=== PATIENT | male | born 1950 | race Caucasian/White ===

== ENCOUNTER 2023-06-03 15:40 | Emergency (ER) | payer OTHER ==
[2023-06-03 16:43] LABS: BASOPHILS % (AUTO) 0.6 %; MEAN CORPUSCULAR VOLUME 83.3 fL (80.0-94.0); MONOCYTES % (AUTO) 6.9 %; RED CELL DISTRIBUTION WIDTH 18.2 % (12.0-15.0)
[2023-06-03 16:45] LABS: EOSINOPHILS % (AUTO) 0.3 %; HCT - HEMATOCRIT 45.3 % (42.0-52.0); HGB - HEMOGLOBIN 14.1 g/dL (14.0-18.0); LYMPHOCYTES % (AUTO) 9.6 %; MEAN CORPUSCULAR HEMOGLOBIN 25.9 pg (27.0-31.0); MEAN CORPUSCULAR HGB CONC 31.1 g/dL (32.0-36.0); NEUTROPHILS % (AUTO) 78.4 %; PLT - PLATELET COUNT 586 10^3/uL (130-450); RED BLOOD COUNT 5.44 10^6/uL (4.70-6.10); WHITE BLOOD COUNT 16.9 x10^3/uL (4.8-10.8)
[2023-06-03 16:46] LABS: ABNORMAL LYMPHS % (MANUAL) 0 %
[2023-06-03 16:56] LABS: ALBUMIN 3.7 g/dL (3.2-5.5)
[2023-06-03 17:02] LABS: ALBUMIN/GLOBULIN RATIO 1.1 (1.0-2.2); BAND NEUTROPHILS % (MANUAL) 2 %; BILIRUBIN,TOTAL 0.7 mg/dL (0.2-1.0); CALCIUM 9.8 mg/dL (8.5-10.3); CREATININE 2.6 mg/dL (0.6-1.3); LYMPHOCYTES # (MANUAL) 1.4 10^3/uL (1.5-3.5); LYMPHOCYTES % (MANUAL) 5 %; METAMYELOCYTES % (MANUAL) 2 %; MONOCYTES # (MANUAL) 1.5 10^3/uL (0.0-1.0); MYELOCYTES % (MANUAL) 1 %; NEUTROPHILS # (MANUAL) 13.5 10^3/uL (1.5-6.6); POTASSIUM 4.7 mmol/L (3.5-4.5); REACTIVE LYMPHS % (MANUAL) 3 %; TOTAL PROTEIN 7.1 g/dL (6.4-8.9)
[2023-06-03 17:03] LABS: DIFFERENTIAL COMMENT MANUAL DIFFERENTIAL; PLATELET ESTIMATE, MANUAL INCREASED (>450,000) (NORMAL); PLATELET MORPHOLOGY 1+ GIANT PLATELETS (NORMAL); RBC MORPHOLOGY (MULTIPLE) 2+ ANISOCYTOSIS (NORMAL)
[2023-06-03] MEDS ORDERED: ONDANSETRON 4 MG/2 ML VIAL IVP STA ×2 (17:32→19:43)
[2023-06-03] MEDS ORDERED: SODIUM CHLORIDE 0.9% 1,000 ML IV STA ×2 (17:32→18:37)
--- NOTE | 2023-06-03 17:33 | ED Physician Documentation ---
PD HPI ABD PAIN - Stated complaint Stated Complaint: NAUSEA/INDIGESTION - Chief complaint Chief Complaint: Abd Pain - History obtained from History obtained from: Patient - Additional information Additional information: 73-year-old gentleman with history of melanoma on his chest around 9 years ago. Starting about 5 weeks ago he was hospitalized at [facility] and found that he had widespread metastases and is planned to start immunotherapy in the next week or so. He presents to the emergency department with about 4 days of nausea, stomach upset without pain, and bloating. He also feels short of breath. He is only current medication is Lovenox for a blood clot. I am unable to ascertain from his history where the blood clot is. PD PAST MEDICAL HISTORY - Past Medical History Past Medical History: Yes Other Past Medical History: melanoma with mets - Past Surgical History Past Surgical History: Yes - Allergies Allergies/Adverse Reactions: Allergies Allergy/AdvReac Type Severity Reaction Status Date / Time No Known Drug Allergies Allergy Verified 06/03/23 16:00 - Social History Does the pt smoke?: No Smoking Status: Never smoker PD ED PE NORMAL - Vitals Vital signs reviewed: Yes - General General: Alert and oriented X 3, Other (He appears ill, he is tachypneic but a good historian.) - HEENT HEENT: PERRL, EOMI - Neck Neck: Supple, no meningeal sign, No bony TTP - Cardiac Cardiac: RRR, No murmur - Respiratory Respiratory: Clear bilaterally, Other (Tachypneic) - Abdomen Abdomen: Other (Mildly distended abdomen but nontender) - Back Back: No CVA TTP - Derm Derm: Normal color, Warm and dry - Extremities Extremities: Other (1+ right and 2+ left pitting pedal edema) - Neuro Neuro: Alert and oriented X 3, Normal speech Results - Vitals Vitals: Vital Signs - 24 hr 06/03/23 06/03/23 06/03/23 15:57 16:00 18:32 Temperature 36.5 C Heart Rate 101 H 111 H 112 H Respiratory 18 25 H 25 H Rate Blood Pressure 149/87 H 154/99 H 136/103 H O2 Saturation 100 96 100 06/03/23 06/03/23 06/03/23 19:00 21:00 22:00 Temperature Heart Rate 136 H 105 H 112 H Respiratory 23 20 24 Rate Blood Pressure 147/95 H 131/91 H 138/90 H O2 Saturation 100 99 99 Oxygen O2 Source Room air - Labs Labs: Laboratory Tests 06/03/23 06/03/23 06/03/23 16:39 16:39 17:13 WBC 16.9 H RBC 5.44 Hgb 14.1 Hct 45.3 MCV 83.3 MCH 25.9 L MCHC 31.1 L RDW 18.2 H Plt Count 586 H MPV 9.0 Neut # (Auto) Not Reportable Lymph # (Auto) Not Reportable [place] # (Auto) Not Reportable Eos # (Auto) Not Reportable Baso # (Auto) Not Reportable Absolute Nucleated RBC Not Reportable Total Counted 100 Band Neuts % (Manual) 2 Reactive Lymphs % (Man) 3 Abnorm Lymph % (Manual) 0 Metamyelocytes % 2 H Myelocytes % 1 H Nucleated RBC % Not Reportable Neutrophils # (Manual) 13.5 H Lymphocytes # (Manual) 1.4 L Monocytes # (Manual) 1.5 H Eosinophils # (Manual) 0.0 Basophils # (Manual) 0.0 Differential Comment MANUAL DIFFERENTIAL Platelet Estimate INCREASED (>450,000) Platelet Morphology 1+ GIANT PLATELETS RBC Morph Micro Appear 2+ ANISOCYTOSIS VBG pH VBG pCO2 VBG pO2 VBG HCO3 VBG Total CO2 VBG O2 Saturation VBG Base Excess Sodium 135 Potassium 4.7 H Chloride 102 Carbon Dioxide 11 L* Anion Gap 22.0 H BUN 54 H Creatinine 2.6 H Estimated GFR (MDRD) 24 L Glucose 72 L POC Whole Bld Glucose Lactic Acid Calcium 9.8 Total Bilirubin 0.7 AST 39 ALT 20 Alkaline Phosphatase 549 H Total Protein 7.1 Albumin 3.7 Globulin 3.4 Albumin/Globulin Ratio 1.1 Lipase 58 SARS-CoV-2 (PCR) NOT DETECTED 06/03/23 06/03/23 06/03/23 17:38 17:38 20:47 WBC RBC Hgb Hct MCV MCH MCHC RDW Plt Count MPV Neut # (Auto) Lymph # (Auto) [place] # (Auto) Eos # (Auto) Baso # (Auto) Absolute Nucleated RBC Total Counted Band Neuts % (Manual) Reactive Lymphs % (Man) Abnorm Lymph % (Manual) Metamyelocytes % Myelocytes % Nucleated RBC % Neutrophils # (Manual) Lymphocytes # (Manual) Monocytes # (Manual) Eosinophils # (Manual) Basophils # (Manual) Differential Comment Platelet Estimate Platelet Morphology RBC Morph Micro Appear VBG pH 7.143 L* VBG pCO2 30.2 L VBG pO2 26.8 VBG HCO3 10.1 L VBG Total CO2 11.0 L VBG O2 Saturation 43.2 L VBG Base Excess -17.5 L Sodium 136 Potassium 4.8 H Chloride 105 Carbon Dioxide 9 L* Anion Gap 22.0 H BUN 54 H Creatinine 2.5 H Estimated GFR (MDRD) 25 L Glucose 60 L* POC Whole Bld Glucose Lactic Acid 3.6 H* Calcium 8.9 Total Bilirubin AST ALT Alkaline Phosphatase Total Protein Albumin Globulin Albumin/Globulin Ratio Lipase SARS-CoV-2 (PCR) 06/03/23 06/03/23 06/03/23 20:47 20:47 22:26 WBC RBC Hgb Hct MCV MCH MCHC RDW Plt Count MPV Neut # (Auto) Lymph # (Auto) [place] # (Auto) Eos # (Auto) Baso # (Auto) Absolute Nucleated RBC Total Counted Band Neuts % (Manual) Reactive Lymphs % (Man) Abnorm Lymph % (Manual) Metamyelocytes % Myelocytes % Nucleated RBC % Neutrophils # (Manual) Lymphocytes # (Manual) Monocytes # (Manual) Eosinophils # (Manual) Basophils # (Manual) Differential Comment Platelet Estimate Platelet Morphology RBC Morph Micro Appear VBG pH 7.133 L* VBG pCO2 26.0 L VBG pO2 35.1 VBG HCO3 8.5 L VBG Total CO2 9.3 L VBG O2 Saturation 59.9 L VBG Base Excess -19.0 L Sodium Potassium Chloride Carbon Dioxide Anion Gap BUN Creatinine Estimated GFR (MDRD) Glucose POC Whole Bld Glucose 70 Lactic Acid 3.1 H* Calcium Total Bilirubin AST ALT Alkaline Phosphatase Total Protein Albumin Globulin Albumin/Globulin Ratio Lipase SARS-CoV-2 (PCR) - Rads (name of study) CT abdomen pelvis with extensive metastatic disease, obstruction of the renal pelvis from 1. Possible ruptured metastatic lesion in the spleen Relevant Findings:: Final report received, EMP independent interpretation of test CT Chest, Relevant Findings:: Final report received (CT chest small right pleural effusion, small pulmonary nodules, axillary adenopathy, possible pathologic rib fracture, L1 compression fracture), EMP independent interpretation of test PD Medical Decision Making - ED course ED course: 73-year-old gentleman with recent diagnosis of widely metastatic melanoma presents with abdominal symptoms but not pain per se. He is ill-appearing, tachycardic and tachypneic. He does not have abdominal tenderness. Initial workup done in triage shows a CBC with a white count of 16 and a left shift. Chemistries are notable for significant acidosis with bicarb of 11, he has prerenal azotemia with a BUN of 54 and a creatinine of 2.6 and alkaline phosphatase of 549. I do not have any prior values to compare these with. Differential diagnosis is broad and he does appear ill, we will culture him up, check lactate and venous gas as well as CT of the chest and abdomen. He will need IV fluids and likely admission. Will start IV abx, not clear if there is infection, but seems tan to "shoot first." CTs will need to be done without contrast given his current renal function. PE is a consideration but he is already on Lovenox. arrived and we discussed the case. There was no mention of renal insufficiency when he was at [facility] so presume this was acute, especially since he is taking Lovenox twice daily and I believe otherwise it would have to be renally dosed. Lactate elevated and venous blood gas showing acidosis with pH of 7.14 and CO2 of 30 so this represents a metabolic acidosis with respiratory compensation. Accepted at [facility] by Dr. Bridget Sanchez at approximately 8 PM and cobras were completed. I believe he is stable for ground transport. Rpt labs showing slightly worsening acidosis and mild hypoglycemia despite lg volume crystalloid and given 1/2 amp D50 and started D5/bicarb gtt. Pt unable to provide UA. - Critical Care Time(min): 45 Time Includes: Direct patient care, Review records, Reassess patient, Document care, Coordinate care, Medical consult, Family consult for tx dec, See progress note Data interpretation: Labs, Pulse ox Procedures included in critical care time: Peripheral IV Departure - Departure Disposition: 02 Transfer Acute Care Hosp Clinical Impression: Hydronephrosis, Metastatic melanoma, Acidemia, Lactic acid acidosis, ARF (acute renal failure), Splenic lesion Condition: Serious Forms: PCP List Discharge Date/Time: 06/03/23 22:50
[2023-06-03 17:49] LABS: VBG BASE EXCESS -17.5 mmol/L (-2 - +2); VBG HCO3 10.1 mmol/L (23-28); VBG PCO2 30.2 mmHg (41-51); VBG PO2 26.8 mmHg (25-47)
[2023-06-03 17:50] LABS: VBG OXYGEN SATURATION 43.2 % (60-80)
[2023-06-03 17:52] LABS: VBG PH 7.143 (7.31-7.41)
[2023-06-03] MEDS ORDERED: PIPERACILLIN/TAZOBACTAM 3.375 GM in SODIUM CHLORIDE 0.9% MINIBAG 100 ML IV STA (18:18)
--- NOTE | 2023-06-03 19:06 | CT Report ---
PROCEDURE: CHEST WO INDICATIONS: Metastatic melanoma, shortness of breath TECHNIQUE: Noncontrast 1mm axial images were acquired from the pulmonary apices to the posterior costophrenic an gles. Axial 5 mm soft tissue kernel reconstructions were performed as well as 8 mm axial MIP and cor onal and sagittal 5 mm reformations. For radiation dose reduction, the following was used: automate d exposure control, adjustment of mA and/or kV according to patient size. COMPARISON: None FINDINGS: Image quality: Excellent. Lungs and pleura: No consolidation. Small right pleural effusion. No pneumothorax. Scattered subcent imeter pulmonary nodules. Mediastinum: Heart size is normal. No pericardial effusion. Mild atherosclerotic vascular calcificati ons of the coronary arteries. No large vessel abnormality. Atherosclerosis. No mediastinal adenopathy by size criteria. Small hiatal hernia. Chest wall and lower neck: Thyroid is unremarkable. Axilla lymphadenopathy, largest on the left measu ring 3.4 cm.. Bones: No aggressive osseous abnormality. Subacute fracture deformity of the right sixth lateral rib with callus formation, pathologic fracture is not excluded. Compression deformity of the L1 vertebral body with moderate to severe central height loss. Diffusely decreased osseous mineralization and mil d degenerative changes of the spine.. Upper Abdomen: Please refer to separately dictated CT of the abdomen. IMPRESSION: 1.Small right pleural effusion. No focal pulmonary consolidations. 2.Scattered subcentimeter pulmonary nodules, concerning for metastatic disease. 3.Axillary lymphadenopathy, largest in the left measuring 3.4 cm, concerning for metastatic disease. 4.Subacute fracture of the right sixth lateral rib with callus formation, pathologic fracture is not excluded. 5.Age-indeterminate moderate compression deformity of the L1 vertebral body. Reviewed by: Karthik Jose MD on 06/03/2023 7:05 PM PST Approved by: Karthik Jose MD on 06/03/2023 7:05 PM PST Station ID: [id number]
--- NOTE | 2023-06-03 19:08 | CT Report ---
PROCEDURE: ABDOMEN/PELVIS WO INDICATIONS: Abdominal distention, metastatic melanoma TECHNIQUE: A CT scan of the abdomen and pelvis was performed without the use of intravenous contrast. Images we re recorded and evaluated at appropriate window settings. Reformats: coronal and sagittal. For radiat ion dose reduction, the following was used: automated exposure control, adjustment of mA and/or kV ac cording to patient size. COMPARISON: None. FINDINGS: Image quality: Excellent. Lung bases and heart: Please see same day dedicated chest CT. Liver: Innumerable liver metastases. Gallbladder and biliary tree: Not visualized. No intrahepatic biliary dilation. Spleen: There is a heterogeneous lesion containing hyperattenuating material within the spleen, measu ring approximately 4.7 x 4.1 cm (series 2, image 17). Pancreas: No pancreatic ductal dilation. Adrenals: No adrenal nodule. Kidneys and ureters: Moderate left-sided hydronephrosis. Extensive retroperitoneal metastases, includ ing the lesion at the left renal hilum measuring 5.5 x 5.4 cm (series 2, image 39). Bowel and peritoneum: No bowel distension. Extensive peritoneal carcinomatosis, largest mass is centr al, measuring 7.7 cm (series 2, image 57). Small volume ascites. Lymph nodes: Retroperitoneal adenopathy. Vessels: No infrarenal aortic aneurysm. PELVIS Reproductive organs: Unremarkable. Bladder: No wall thickness, accounting for underdistention. Pelvic lymph nodes: No pelvic adenopathy by size criteria. Bones: L1 compression deformity. No soft tissue mass. Other: No significant ventral or inguinal hernia. IMPRESSION: Extensive metastatic disease, with liver metastasis, peritoneal carcinomatosis, retroperitoneal adeno munir, retroperitoneal carcinomatosis. Mass at the left renal hilum measuring 5.4 x 5.5 cm, obstructing the renal pelvis, resulting in moder ate hydronephrosis. Hyperattenuating splenic region measuring 4.7 x 4.1 cm. Findings could represent a ruptured metastati c lesion. However, after discussion with Dr. Herrera, the hematocrit was stable. Recommend continued t rending of the hematocrit to ensure no interval rupture/bleed. Above discussed with Noe Herrera MD at the time of dictation. Reviewed by: Villa Billy on 06/03/2023 6:06 PM [facility] Approved by: Villa Billy on 06/03/2023 6:06 PM [facility] Station ID: [id number]
[2023-06-03 20:57] LABS: VBG HCO3 8.5 mmol/L (23-28); VBG PO2 35.1 mmHg (25-47)
[2023-06-03 20:58] LABS: VBG OXYGEN SATURATION 59.9 % (60-80); VBG TOTAL CO2 9.3 mmol/L (24-29)
[2023-06-03 20:59] LABS: VBG PH 7.133 (7.31-7.41)
[2023-06-03 21:14] LABS: CALCIUM 8.9 mg/dL (8.5-10.3); CREATININE 2.5 mg/dL (0.6-1.3); POTASSIUM 4.8 mmol/L (3.5-4.5)
[2023-06-03] MEDS ORDERED: DEXTROSE 50% ABBOJECT 25 GM/50 ML SYRINGE IVP STA ×2 (21:15→22:27)
[2023-06-03] MEDS ORDERED: SODIUM BICARBONATE 8.4% 50 MEQ/50 ML VIAL ONE ×2 (21:18→21:23)
[2023-06-03] MEDS ORDERED: DEXTROSE 5% 1,000 ML IV ONE (21:23)
[2023-06-03] MEDS: SODIUM BICARBONATE 150 MEQ in DEXTROSE 5% 1,000 ML IV STA ×2 (21:32→21:34)
[2023-06-03 22:17] VITALS: BP 138/90; O2SAT 99
== END 2023-06-03 22:50 | disposition short-term general hospital (02) ==
LOC: ED 15:40
DX: C43.9 Malignant melanoma of skin, unspecified (principal); C79.9 Secondary malignant neoplasm of unspecified site; N17.9 Acute kidney failure, unspecified; N13.30 Unspecified hydronephrosis; E87.20 Acidosis, unspecified; Z11.52 Encounter for screening for COVID-19; Z79.01 Long term (current) use of anticoagulants
CPT/HCPCS: 36415; 80048; 80053; 82803; 83605; 83690; 85025; 87040; 87635; 96365; 96375; 96376; 99291